=== PATIENT | male | born 1990 | race Caucasian/White ===

== ENCOUNTER 2016-05-13 19:14 | Emergency (ER) | payer OTHER ==
[~2016-05-13] VITALS: Ht 188 cm; Wt 95.0 kg
[~2016-05-13 19:14] MED LIST: CEPH500C3 PO; MEDR4PAK3 PO; Z.0.NO CURRENT MEDS
[2016-05-13 19:16] VITALS: BP 130/57; PULSE 130; RESP 16; TEMP 100.2; O2SAT 97
--- NOTE | 2016-05-13 19:46 | PD ---
HPI Chief Complaint: GI Complaint Time Seen by Provider: 19:46 Travel History International Travel<30 days: No Contact w/Intl Traveler<30days: No Traveled to known affect area: No History of Present Illness HPI 18-year-old male presents to the ED for evaluation of 4 day history of nausea, vomiting, diarrhea, body aches, fevers, sore throat, left ear pain, dull headache. The patient was diagnosed with influenza 4 days ago. He was prescribed Tamiflu and has been compliant with the medication. He states that he has been unable to keep anything down secondary to nausea and vomiting. He attempted to treat his fever with liquid Motrin which he also was unable to keep down. Patient also states that he has had a low volume of urine over the last few days. [facility] Past Medical History Diminished Hearing: No Social History Alcohol Use: Yes (3 BEERS PER WEEK) Tobacco Use: No Allergies-Medications (Allergen,Severity, Reaction): Coded Allergies: No Known Allergies (Verified , 05/13/16) Reported Meds & Prescriptions Reported Meds & Active Scripts Active Physical Exam Narrative GENERAL: Well-nourished, well-developed ill-appearing white male in no acute distress. SKIN: Warm and moist. HEAD: Normocephalic. EYES: No scleral icterus. No injection or drainage. ENT: Bilateral tympanic membranes erythematous without loss of landmarks. Left greater than right. Nasal mucosa moist. Oropharynx mildly erythematous, tonsils 1+ bilaterally. No visible exudates. NECK: Supple, trachea midline. No JVD or lymphadenopathy. CARDIOVASCULAR: Regular rate and rhythm without murmurs, gallops, or rubs. 2+ DP and radial pulses bilaterally. RESPIRATORY: Breath sounds clear and equal bilaterally. No accessory muscle use. GASTROINTESTINAL: Abdomen soft, nondistended. Mildly tender in the epigastric region. Active bowel sounds. MUSCULOSKELETAL: No cyanosis, or edema. Patient is ambulatory, walks with a normal gait. BACK: Nontender without obvious deformity. No CVA tenderness. Data Data Last Documented VS Vital Signs Date Time Temp Pulse Resp B/P Pulse Ox O2 Delivery O2 Flow Rate FiO2 05/13/16 19:16 100.2 130 16 130/57 97 Room Air Orders Complete Blood Count With Diff (05/13/16 19:52) Comprehensive Metabolic Panel (05/13/16 19:52) Urinalysis - C+S If Indicated (2/3/17 19:52) Iv Access Insert/Monitor (05/13/16 19:52) Ondansetron Inj (Zofran Inj) (05/13/16 20:00) Sodium Chlor 0.9% 1000 Ml Inj (Ns 1000 M (05/13/16 19:52) Lipase (05/13/16 19:52) Lactic Acid (05/13/16 19:52) Sodium Chlor 0.9% 1000 Ml Inj (Ns 1000 M (05/13/16 20:00) Acetaminophen (Tylenol) (05/13/16 20:00) Group A Rapid Strep Screen (05/13/16 20:07) MDM Medical Decision Making Medical Screen Exam Complete: Yes Emergency Medical Condition: Yes Differential Diagnosis Influenza versus strep pharyngitis versus dehydration versus electrolyte abnormality versus metabolic derangement versus other Narrative Course 18-year-old male presents to the ED for evaluation of 4 day history of nausea, vomiting, diarrhea, body aches, fevers, sore throat, left ear pain, dull headache. The patient was diagnosed with influenza 4 days ago. He was prescribed Tamiflu and has been compliant with the medication. He states that he has been unable to keep anything down secondary to nausea and vomiting. He attempted to treat his fever with liquid Motrin which he also was unable to keep down. Patient also endorses low volume of urine. Vitals reviewed. Patient is febrile, tachycardic, hypotensive on presentation. Physical exam reveals an ill-appearing white male in no acute distress. ENT exam reveals erythematous tympanic membranes bilaterally without loss of landmarks, left greater than right. Posterior oropharynx mildly erythematous without visible exudates. Mild epigastric tenderness to palpation. Remaining physical exam is otherwise unremarkable. IV was established. 2 L normal saline, Tylenol, Zofran administered. Lab work, UA, strep swab ordered. This patient will be transferred to the medical pods. Please see oncoming provider note for disposition. Anjali Dozier May 13, 2016 19:46
[2016-05-13] MEDS ORDERED: SODIUM CHLOR 0.9% 1000 ML INJ 1,000 ML IV ONE ×2 (19:52→20:00)
[2016-05-13] MEDS ORDERED: ACETAMINOPHEN 325 MG TAB PO ONE (20:00)
[2016-05-13] MEDS ORDERED: ONDANSETRON HCL 4 MG/2 ML VIAL IVP ONE (20:00)
[2016-05-13 20:56] LABS: BLOOD, URINE MOD (NEG); COMMENT (UR) CULT NOT INDICATED; CULTURE IF INDICATED CULT NOT INDICATED; GLUCOSE,URINE NEG (NEG); GRANULAR CAST, URINE 10 /lpf; KETONE, URINE NEG (NEG); MUCUS URINE FEW /lpf (OCC); NITRITE,URINE NEG (NEG); SQUAMOUS EPITHELIAL CELL URINE <1 /hpf (0-5)
[2016-05-13 21:02] LABS: URINE COLOR ORANGE (YELLW/STRAW)
[2016-05-13 21:09] LABS: AUTOMATED NEUTROPHIL # 9.7 TH/MM3 (1.8-7.7); BASOPHIL % 0.2 % (0.0-2.0); EOSINOPHIL # 0.3 TH/MM3 (0-0.4); EOSINOPHIL % 2.4 % (0.0-4.0); HEMATOCRIT 39.7 % (39.0-51.0); LYMPH % 2.4 % (9.0-44.0); LYMPHOCYTE # 0.3 TH/MM3 (1.0-4.8); MEAN CELL VOLUME 84.4 FL (80.0-100.0); MEAN CORPUSCULAR HEMOGLOBIN 30.1 PG (27.0-34.0); MEAN CORPUSCULAR HGB CONC 35.7 % (32.0-36.0); MONO % 7.6 % (0.0-8.0); NEUT % 87.4 % (16.0-70.0); PLATELET COUNT 81 TH/MM3 (150-450); RED CELL DISTRIBUTION WIDTH 12.9 % (11.6-17.2); WHITE BLOOD COUNT 11.1 TH/MM3 (4.0-11.0)
--- NOTE | 2016-05-13 21:10 | PD ---
Data Data Last Documented VS Vital Signs Date Time Temp Pulse Resp B/P Pulse Ox O2 Delivery O2 Flow Rate FiO2 05/13/16:17 100.0 98 18 109/58 95 Room Air Orders Complete Blood Count With Diff (05/13/16 19:52) Comprehensive Metabolic Panel (05/13/16 19:52) Urinalysis - C+S If Indicated (05/13/16 19:52) Iv Access Insert/Monitor (05/13/16 19:52) Ondansetron Inj (Zofran Inj) (05/13/16 20:00) Sodium Chlor 0.9% 1000 Ml Inj (Ns 1000 M (05/13/16 19:52) Lipase (05/13/16 19:52) Lactic Acid (05/13/16 19:52) Sodium Chlor 0.9% 1000 Ml Inj (Ns 1000 M (05/13/16 20:00) Acetaminophen (Tylenol) (05/13/16 20:00) Group A Rapid Strep Screen (05/13/16 20:07) Strep Culture (Group A) (05/13/16 20:06) Labs Laboratory Tests Test 05/13/16 05/13/16 05/13/16 20:05 20:49 21:00 Urine Color ORANGE Urine Turbidity HAZY Urine pH 6.0 Urine Specific [place] 1.032 Urine Protein 300 mg/dL Urine Glucose (UA) NEG mg/dL Urine Ketones NEG mg/dL Urine Occult Blood MOD Urine Nitrite NEG Urine Bilirubin SMALL Urine Urobilinogen LESS THAN 2.0 MG/DL Urine Leukocyte Esterase NEG Urine RBC 1 /hpf Urine WBC 5 /hpf Urine Squamous Epithelial <1 /hpf Cells Urine Amorphous Sediment RARE Urine Granular Casts 10 /lpf Urine Mucus FEW /lpf Microscopic Urinalysis Comment CULT NOT INDICATED White Blood Count 11.1 TH/MM3 Red Blood Count 4.70 MIL/MM3 Hemoglobin 14.2 GM/DL Hematocrit 39.7 % Mean Corpuscular Volume 84.4 FL Mean Corpuscular Hemoglobin 30.1 PG Mean Corpuscular Hemoglobin 35.7 % Concent Red Cell Distribution Width 12.9 % Platelet Count 81 TH/MM3 Mean Platelet Volume 9.4 FL Neutrophils (%) (Auto) 87.4 % Lymphocytes (%) (Auto) 2.4 % Monocytes (%) (Auto) 7.6 % Eosinophils (%) (Auto) 2.4 % Basophils (%) (Auto) 0.2 % Neutrophils # (Auto) 9.7 TH/MM3 Lymphocytes # (Auto) 0.3 TH/MM3 Monocytes # (Auto) 0.8 TH/MM3 Eosinophils # (Auto) 0.3 TH/MM3 Basophils # (Auto) 0.0 TH/MM3 CBC Comment AUTO DIFF Differential Total Cells 100 Counted Neutrophils % (Manual) 78 % Band Neutrophils % 17 % Lymphocytes % 1 % Monocytes % 3 % Neutrophils # (Manual) 10.7 TH/MM3 Metamyelocytes 1 % Differential Comment FINAL DIFF MANUAL Toxic Vacuolation PRESENT Platelet Estimate LOW Platelet Morphology Comment NORMAL Sodium Level 131 MEQ/L Potassium Level 3.3 MEQ/L Chloride Level 95 MEQ/L Carbon Dioxide Level 27.8 MEQ/L Anion Gap 8 MEQ/L Blood Urea Nitrogen 16 MG/DL Creatinine 1.04 MG/DL Estimat Glomerular Filtration 85 ML/MIN Rate Random Glucose 126 MG/DL Calcium Level 8.0 MG/DL Total Bilirubin 1.8 MG/DL Aspartate Amino Transf 45 U/L (AST/SGOT) Alanine Aminotransferase 30 U/L (ALT/SGPT) Alkaline Phosphatase 86 U/L Total Protein 7.0 GM/DL Albumin 2.8 GM/DL Lipase 69 U/L Lactic Acid Level 1.4 mmol/L MDM Supervised Visit with IRVIN: Yes Narrative Course Patient care assumed from Genny BOSCH when patient was roomed in the alpha pod from provider in triage. Patient is a 26-year-old male who presents emergency department for inability to tolerate by mouth liquids and fever. He was diagnosed with influenza few days ago. Patient was examined by me. He has been taking his Tamiflu. GENERAL: Well-developed well-nourished, flushed skin but in no obvious distress. SKIN: Hot and dry. HEAD: Atraumatic. Normocephalic. EYES: Pupils equal and round. No scleral icterus. No injection or drainage. ENT: No nasal bleeding or discharge. Mucous membranes pink and moist. Clear bilaterally oropharynx clear, tonsils normal. NECK: Trachea midline. No JVD. CARDIOVASCULAR: Regular rate and rhythm. RESPIRATORY: No accessory muscle use. Clear to auscultation. Breath sounds equal bilaterally. GASTROINTESTINAL: Abdomen soft, non-tender, nondistended. Hepatic and splenic margins not palpable. MUSCULOSKELETAL: Extremities without clubbing, cyanosis, or edema. No obvious deformities. NEUROLOGICAL: Awake and alert. No obvious cranial nerve deficits. Motor grossly within normal limits. Five out of 5 muscle strength in the arms and legs. Normal speech. PSYCHIATRIC: Appropriate mood and affect; insight and judgment normal. Patient was given 2 L normal saline as well as Tylenol by mouth. After which she was walking around the emergency department. He does have a mild elevation of white blood cell count 11.1 with a left shift. Chemistry shows mild hyponatremia and mild hypokalemia consistent with a mild dehydration. Lactic acid 1.4. UA shows some concentration consistent with a moderate dehydration. Overall the patient is feeling much better after rehydration and Tylenol. His temperature is improving albeit very slowly. I discussed with him need to push by mouth fluids at home and continue his antinausea medicine. Patient did have some concerns that he might be getting an ear infection. I discussed with him that his TMs are clear bilaterally at this time though I will prescribe him azithromycin to be taken in 2-3 days of his symptoms are no better. Recommended he hold this for the time being and as his symptoms are likely from the flu at this time and that further antibiotics are likely to make him more nauseated. He is stable for discharge discussed return to ED criteria. Diagnosis Primary Impression: Dehydration Additional Impression: Influenza Scripts Azithromycin 250 Mg [id number] Mg PO DIRECTED #6 TAB Ref 0 Take 2 tabs (500 mg) on day 1 then 1 tab daily x 4 days. Prov:Davion Glasgow MD 05/13/16 Disposition: 01 DISCHARGE HOME Condition: Stable Davion Glasgow MD May 13, 2016 21:10
[2016-05-13 21:18] LABS: HEMO FLAGS AUTO DIFF
[2016-05-13 22:06] LABS: ALKALINE PHOSPHATASE 86 U/L (45-117); TOTAL BILIRUBIN ADULT 1.8 MG/DL (0.2-1.0)
[2016-05-13 22:10] LABS: ALT (GPT) 30 U/L (12-78); ANION GAP 8 MEQ/L (5-15); AST (GOT) 45 U/L (15-37); BICARBONATE 27.8 MEQ/L (21.0-32.0); BLOOD UREA NITROGEN 16 MG/DL (7-18); CHLORIDE 95 MEQ/L (98-107); GLOMERULAR FILTRATION RATE 85 ML/MIN (>89); SODIUM (NA) 131 MEQ/L (136-145)
[2016-05-13 22:12] LABS: POTASSIUM 3.3 MEQ/L (3.5-5.1)
[2016-05-13 22:17] VITALS: BP 109/58; PULSE 98; RESP 18; TEMP 100; O2SAT 95
[2016-05-13 22:40] LABS: BANDS 17 % (0-6); METAMYELOCYTES 1 % (0-1); NEUTROPHIL # MANUAL DIFF 10.7 TH/MM3 (1.8-7.7); POLYS (SEG NEUTROPHILS) 78 % (16-70); WBC DIFF SAMPLE 100
[2016-05-13 22:41] LABS: PLATELET ESTIMATE SMEAR LOW (NORMAL); PLATELET MORPHOLOGY NORMAL (NORMAL); SCAN/DIFF FINAL DIFF MANUAL; TOXIC VACUOLATION PRESENT (NONE SEEN)
[2016-05-13] MEDS ORDERED: AZIT250T3 PO (23:12)
--- NOTE | 2016-05-13 23:13 | PD ---
HPI Chief Complaint: GI Complaint Time Seen by Provider: 21:09 Travel History International Travel<30 days: No Contact w/Intl Traveler<30days: No Traveled to known affect area: No PFSH Past Medical History Medical History: Denies Significant Hx Diminished Hearing: No Tetanus Vaccination: < 5 Years Influenza Vaccination: Yes Past Surgical History Surgical History: No Previous Surgery Social History Alcohol Use: Yes (3 BEERS PER WEEK) Tobacco Use: No Substance Use: No Allergies-Medications (Allergen,Severity, Reaction): Coded Allergies: No Known Allergies (Verified , 05/13/16) Reported Meds & Prescriptions Reported Meds & Active Scripts Active Azithromycin 250 Mg Tab 250 Mg PO DIRECTED Take 2 tabs (500 mg) on day 1 then 1 tab daily x 4 days. Data Data Last Documented VS Vital Signs Date Time Temp Pulse Resp B/P Pulse Ox O2 Delivery O2 Flow Rate FiO2 05/13/16 22:17 100.0 98 18 109/58 95 Room Air Orders Complete Blood Count With Diff (05/13/16 19:52) Comprehensive Metabolic Panel (05/13/16 19:52) Urinalysis - C+S If Indicated (05/13/16 19:52) Iv Access Insert/Monitor (05/13/16 19:52) Ondansetron Inj (Zofran Inj) (05/13/16 20:00) Sodium Chlor 0.9% 1000 Ml Inj (Ns 1000 M (05/13/16 19:52) Lipase (05/13/16 19:52) Lactic Acid (05/13/16 19:52) Sodium Chlor 0.9% 1000 Ml Inj (Ns 1000 M (05/13/16 20:00) Acetaminophen (Tylenol) (05/13/16 20:00) Group A Rapid Strep Screen (05/13/16 20:07) Strep Culture (Group A) (05/13/16 20:06) Labs Laboratory Tests Test 05/13/16 05/13/16 05/13/16 20:05 20:49 21:00 Urine Color ORANGE Urine Turbidity HAZY Urine pH 6.0 Urine Specific [place] 1.032 Urine Protein 300 mg/dL Urine Glucose (UA) NEG mg/dL Urine Ketones NEG mg/dL Urine Occult Blood MOD Urine Nitrite NEG Urine Bilirubin SMALL Urine Urobilinogen LESS THAN 2.0 MG/DL Urine Leukocyte Esterase NEG Urine RBC 1 /hpf Urine WBC 5 /hpf Urine Squamous Epithelial <1 /hpf Cells Urine Amorphous Sediment RARE Urine Granular Casts 10 /lpf Urine Mucus FEW /lpf Microscopic Urinalysis Comment CULT NOT INDICATED White Blood Count 11.1 TH/MM3 Red Blood Count 4.70 MIL/MM3 Hemoglobin 14.2 GM/DL Hematocrit 39.7 % Mean Corpuscular Volume 84.4 FL Mean Corpuscular Hemoglobin 30.1 PG Mean Corpuscular Hemoglobin 35.7 % Concent Red Cell Distribution Width 12.9 % Platelet Count 81 TH/MM3 Mean Platelet Volume 9.4 FL Neutrophils (%) (Auto) 87.4 % Lymphocytes (%) (Auto) 2.4 % Monocytes (%) (Auto) 7.6 % Eosinophils (%) (Auto) 2.4 % Basophils (%) (Auto) 0.2 % Neutrophils # (Auto) 9.7 TH/MM3 Lymphocytes # (Auto) 0.3 TH/MM3 Monocytes # (Auto) 0.8 TH/MM3 Eosinophils # (Auto) 0.3 TH/MM3 Basophils # (Auto) 0.0 TH/MM3 CBC Comment AUTO DIFF Differential Total Cells 100 Counted Neutrophils % (Manual) 78 % Band Neutrophils % 17 % Lymphocytes % 1 % Monocytes % 3 % Neutrophils # (Manual) 10.7 TH/MM3 Metamyelocytes 1 % Differential Comment FINAL DIFF MANUAL Toxic Vacuolation PRESENT Platelet Estimate LOW Platelet Morphology Comment NORMAL Sodium Level 131 MEQ/L Potassium Level 3.3 MEQ/L Chloride Level 95 MEQ/L Carbon Dioxide Level 27.8 MEQ/L Anion Gap 8 MEQ/L Blood Urea Nitrogen 16 MG/DL Creatinine 1.04 MG/DL Estimat Glomerular Filtration 85 ML/MIN Rate Random Glucose 126 MG/DL Calcium Level 8.0 MG/DL Total Bilirubin 1.8 MG/DL Aspartate Amino Transf 45 U/L (AST/SGOT) Alanine Aminotransferase 30 U/L (ALT/SGPT) Alkaline Phosphatase 86 U/L Total Protein 7.0 GM/DL Albumin 2.8 GM/DL Lipase 69 U/L Lactic Acid Level 1.4 mmol/L MDM Diagnosis Primary Impression: Dehydration Additional Impression: Influenza Patient Instructions: General Instructions, Dehydration (ED), Influenza (ED) Departure Forms: Tests/Procedures Med/Other Pt SpecificInfo: Prescription(s) given Scripts Azithromycin 250 Mg [id number] Mg PO DIRECTED #6 TAB Ref 0 Take 2 tabs (500 mg) on day 1 then 1 tab daily x 4 days. Prov:Davion Glasgow MD 05/13/16 Davion Glasgow MD May 13, 2016 23:12
== END 2016-05-13 23:18 | disposition home or self-care (01) ==
LOC: NEPA 19:14
DX: E86.0 Dehydration (principal); J11.1 Influenza due to unidentified influenza virus with other respiratory manifestations; R50.9 Fever, unspecified; R11.2 Nausea with vomiting, unspecified; R19.7 Diarrhea, unspecified; H92.02 Otalgia, left ear
CPT/HCPCS: 80053; 81001; 83605; 83690; 85007; 85027; 87081; 87880; 96361; 96374; 99284; J2405; J7030